=== PATIENT | female | born 1990 | race Caucasian/White ===

== ENCOUNTER 2016-06-25 20:19 | Emergency (ER) | payer MEDICAID ==
[2016-06-25 20:48] LABS: APPEARANCE CLEAR (CLEAR); BILIRUBIN NEGATIVE (NEGATIVE); COLOR STRAW (YELLOW); GLUCOSE NEGATIVE (NEGATIVE); KETONE NEGATIVE (NEGATIVE); LEUKOCYTE ESTERASE NEGATIVE (NEGATIVE); NITRITE NEGATIVE (NEGATIVE); PROTEIN NEGATIVE (NEGATIVE); UROBILINOGEN NORMAL (NORMAL)
[2016-06-25 20:49] LABS: HCG URINE NEGATIVE (NEGATIVE)
== END 2016-06-25 22:58 | disposition home or self-care (01) ==
LOC: D.ER 20:19
PROVIDERS: Family Medicine
DX: B34.9 Viral infection, unspecified (principal); E86.0 Dehydration

== ENCOUNTER → 2017-08-07 10:50 | Outpatient (CLI) | payer MEDICAID | END | disposition home or self-care (01) | LOC: D.MRI 10:50 | DX: M54.5 Low back pain (principal) ==

== ENCOUNTER → 2017-09-12 13:10 | Outpatient (CLI) | payer MEDICAID ==
[2017-09-12 15:01] LABS: ERYTHROCYTE SEDIMENTATION RATE 4 mm/hr (0-20)
[2017-09-13 11:19] LABS: ANA REFLEX - DIRECT Negative (Negative)
[2017-09-14 03:12] LABS: CYCLIC CITRULL PEPTIDE IGG/IGA 3 units (0-19)
== END | disposition home or self-care (01) ==
LOC: D.LAB 13:10
DX: D69.1 Qualitative platelet defects (principal); R23.3 Spontaneous ecchymoses; R11.0 Nausea; R93.8 Abnormal findings on diagnostic imaging of other specified body structures; M79.604 Pain in right leg; M79.605 Pain in left leg

== ENCOUNTER 2018-05-28 22:36 | Emergency (ER) | payer MEDICAID ==
[~2018-05-28] VITALS: Ht 162.6 cm; Wt 56.7 kg
[2018-05-28 22:54] VITALS: Ht 162.6 cm; Wt 56.7 kg
[2018-05-28 23:35] LABS: HEMATOCRIT 39.8 % (36.0-48.0); HEMOGLOBIN 13.4 g/dL (12-16); RBC 4.41 10x6/uL (4.00-5.40); WBC 14.3 10x3/uL (4.8-10.8)
[2018-05-28 23:36] LABS: MCH 30.4 pg (26.0-34.0); MCHC 33.7 g/dL (31.0-37.0); MCV 90.2 fL (80.0-100.0); PLATELET COUNT 220 10x3/uL (130-400); RDW 12.7 % (11.5-14.5)
[2018-05-28 23:37] LABS: LYMPHOCYTES 6.8 % (15-50); NEUTROPHILS 88.1 % (40-80)
[2018-05-28 23:56] LABS: APPEARANCE CLEAR (CLEAR); BILIRUBIN NEGATIVE (NEGATIVE); COLOR YELLOW (YELLOW); GLUCOSE NEGATIVE (NEGATIVE); KETONE NEGATIVE (NEGATIVE); NITRITE NEGATIVE (NEGATIVE); PROTEIN NEGATIVE (NEGATIVE); UROBILINOGEN NORMAL (NORMAL)
[2018-05-28 23:58] LABS: HCG URINE NEGATIVE (NEGATIVE)
[2018-05-29 00:05] LABS: ALBUMIN 3.6 g/dL (3.4-5.0); ALKALINE PHOSPHATASE 60 U/L (46-116); ALT (SGPT) 36 U/L (10-68); BILIRUBIN - TOTAL 0.68 mg/dL (0.2-1.3); CALC OSMOLALITY 269 mosm/kg (275-300); CALCIUM 8.8 mg/dL (8.5-10.1); CARBON DIOXIDE 22.2 mmol/L (21.0-32.0); CHLORIDE - SERUM 99 mmol/L (98-107); CREATININE - SERUM 0.8 mg/dL (0.6-1.3); GLUCOSE 95 mg/dL (74-106); POTASSIUM - SERUM 3.6 mmol/L (3.5-5.1); PROTEIN - SERUM 7.5 g/dL (6.4-8.2); SODIUM 134 mmol/L (136-145); UREA NITROGEN 18 mg/dL (7-18); eGFR NON AFRICAN AMERICAN > 90 mL/min (90-120)
[2018-05-29] MEDS ORDERED: AMOXICILLIN875 MG PO (00:19)
[2018-05-29 01:18] VITALS: BP 112/63
== END 2018-05-29 01:19 | disposition home or self-care (01) ==
LOC: D.ER 22:36
PROVIDERS: Family Medicine
DX: J02.0 Streptococcal pharyngitis (principal); M79.18 Myalgia, other site